=== PATIENT | female | born 1990 | race Caucasian/White ===

== ENCOUNTER → 2016-05-25 | Outpatient (CLI) | payer BC, OTHER ==
[2016-05-25 12:14] LABS: CH 29.8; CHCM 33.2; HCT 40.5 % (34.0-46.0); HGB 13.9 gm/dL (11.4-16.0); MCH 30.8 pg (25.0-35.0); MCHC 34.2 g/dL (31.0-37.0); MCV 90.2 fL (80.0-100.0); Mean Platelet Volume 8.6; RBC 4.49 m/uL (3.80-5.40); RDW 12.8 % (11.5-15.5); WBC 10.8 k/uL (3.8-10.6)
[2016-05-25 12:24] LABS: INR 1.1 (<1.1); Partial Thromboplastin Time 29.8 sec (22.0-30.0); Prothrombin Time 11.4 sec (9.0-12.0)
== END ==
LOC: LABWHC1 11:53
PROVIDERS: ATTEND Psychiatry & Neurology Neurology
DX: D68.9 Coagulation defect, unspecified (principal)
CPT/HCPCS: 36415; 85027; 85610; 85730